=== PATIENT | female | born 1975 | race Caucasian/White ===

== ENCOUNTER 2017-08-24 15:54 | Emergency (ER) | payer OTHER ==
[~2017-08-24] VITALS: Ht 162.6 cm; Wt 81.6 kg
[2017-08-24 16:11] VITALS: Ht 162.6 cm; Wt 81.6 kg
[2017-08-24 19:54] VITALS: BP 121/74
== END 2017-08-24 19:54 | disposition home or self-care (01) ==
LOC: ED 15:54
DX: S20.212A Contusion of left front wall of thorax, initial encounter (principal); S70.12XA Contusion of left thigh, initial encounter; S10.93XA Contusion of unspecified part of neck, initial encounter; S50.12XA Contusion of left forearm, initial encounter; V43.92XA Unspecified car occupant injured in collision with other type car in traffic accident, initial encounter; Y93.89 Activity, other specified; Y92.89 Other specified places as the place of occurrence of the external cause; Y99.8 Other external cause status
CPT/HCPCS: J1885; Q0092